=== PATIENT | male | born 1940 | race Caucasian/White ===

== ENCOUNTER 2022-02-26 08:21 | Day surgery (SDC) | payer MEDICARE, BC ==
[~2022-02-26] VITALS: Ht 175.3 cm; Wt 68.5 kg
[~2022-02-26 08:21] MED LIST: ONDA8TAB13 PO; TERA5CAP4 PO
[2022-02-26 08:40] VITALS: BP 146/85
[2022-02-26] MEDS ORDERED: normal saline 500ml IV soln 500 ML IV SCH (09:00)
[2022-02-26] MEDS ORDERED: ACET-1 PO (09:12)
[2022-02-26] MEDS ORDERED: MORP-92 PO (09:12)
[2022-02-26] MEDS ORDERED: AREDS OP (09:12)
[2022-02-26] MEDS ORDERED: FLO0.4C PO (09:12)
[2022-02-26] MEDS ORDERED: DOCU-342 PO (09:12)
[2022-02-26] MEDS ORDERED: DUTA0.5C36 PO (09:12)
[2022-02-26 09:21] LABS: BASOPHILS # (AUTO) 0.1 X10'3 (0-0.2); BASOPHILS % (AUTO) 0.3 % (0-1); EOSINOPHILS # (AUTO) 0.2 X10'3 (0-0.9); EOSINOPHILS % (AUTO) 0.9 % (0-6); HEMATOCRIT 37.6 % (42.0-52.0); HEMOGLOBIN 12.5 g/dl (14.0-17.9); LYMPHOCYTES # (AUTO) 0.6 X10'3 (1.1-4.8); LYMPHOCYTES % (AUTO) 2.3 % (21-51); MEAN CORPUSCULAR HEMOGLOBIN 32.3 PG (27.0-31.0); MEAN CORPUSCULAR HGB CONC 33.2 g/dL (33.0-36.5); MEAN CORPUSCULAR VOLUME 97.3 FL (78-98); MEAN PLATELET VOLUME 8.2 FL (7.4-10.4); MONOCYTES # (AUTO) 1.8 X10'3 (0-0.9); MONOCYTES % (AUTO) 6.8 % (2-12); NEUTROPHILS # (AUTO) 23.6 X10'3 (1.8-7.7); NEUTROPHILS % (AUTO) 89.7 % (42-75); PLATELET COUNT 412 X10'3 (140-440); RED BLOOD COUNT 3.86 X10'6 (4.70-6.10); RED CELL DISTRIBUTION WIDTH 13.2 % (11.5-14.5)
[2022-02-26 09:23] LABS: WHITE BLOOD COUNT 26.3 X10'3 (4.5-11.0)
[2022-02-26 09:46] LABS: TOTAL CELLS COUNTED 100
[2022-02-26 09:47] LABS: PLATELET ESTIMATE NORMAL
--- NOTE | 2022-02-26 10:37 | NUR ---
[facility] was in to see pt. procedure cancelled due to elevated WBC. pts daughter at bedside and aware of pts condition. Per [facility] advised pt per [facility] pt received bolus NS 500ml. per Preston d/johnnie pt and pt will go to [facility] ER per request of pt and pts daughter.
--- NOTE | 2022-02-26 11:00 | NUR ---
pts daughter called EMS to meet them in the front of the hospital for transport to [facility] ER. pt taken to ambulance bay and picked up by EMR. report given to Odalys cover marker. piv intact. pts 2 daughters with pt and aware of pts condition. pt discharged from short stay. all belongings sent with pts daughter.
== END 2022-02-26 11:00 | disposition home or self-care (01) ==
LOC: SSTAY O 08:21
PROVIDERS: ATTEND Radiology Vascular & Interventional Radiology
DX: C34.92 Malignant neoplasm of unspecified part of left bronchus or lung (principal); Z53.8 Procedure and treatment not carried out for other reasons; J44.9 Chronic obstructive pulmonary disease, unspecified; F17.210 Nicotine dependence, cigarettes, uncomplicated; Z98.890 Other specified postprocedural states; Z79.899 Other long term (current) drug therapy
CPT/HCPCS: 85025; 85610; J7030; 85007

== ENCOUNTER 2022-03-19 06:18 | Day surgery (SDC) | payer MEDICARE, BC ==
[~2022-03-19] VITALS: Ht 175.3 cm; Wt 68.8 kg
[~2022-03-19 06:18] MED LIST changes: +ACET-1 PO; +AREDS OP; +DOCU-342 PO; +DUTA0.5C36 PO; +FLO0.4C PO; +MORP-92 PO; -ONDA8TAB13 PO; -TERA5CAP4 PO
[2022-03-19] MEDS ORDERED: normal saline 1000ml 1,000 ML IV PRN (06:45)
[2022-03-19] MEDS ORDERED: SENN-263 PO (06:47)
[2022-03-19] MEDS ORDERED: PANT40TA54 PO (06:47)
[2022-03-19] MEDS ORDERED: ONDA-104 PO (06:47)
[2022-03-19] MEDS ORDERED: GABA-530 PO (06:47)
[2022-03-19] MEDS ORDERED: POLY17PO10 PO (06:47)
[2022-03-19] MEDS ORDERED: PROC-8 PO (06:48)
[2022-03-19 07:00] VITALS: BP 128/48
[2022-03-19] MEDS ORDERED: LIDOcaine 1% 30ml preserv. free vial ONE (07:51)
[2022-03-19] MEDS ORDERED: midazolam 1 mg/ML 2ml injection ONE (07:51)
[2022-03-19] MEDS ORDERED: FENTANYL CITRATE/PF 50 MCG/1 ML VIAL ONE ×2 (07:51→08:18)
[2022-03-19] MEDS ORDERED: heparin sodium, porcine/PF 100unit/ml 5ML syringe ONE (07:52)
[2022-03-19 07:54] LABS: BASOPHILS % (AUTO) 0.2 % (0-1); EOSINOPHILS # (AUTO) 1.1 X10'3 (0-0.9); EOSINOPHILS % (AUTO) 7.2 % (0-6); HEMATOCRIT 29.8 % (42.0-52.0); HEMOGLOBIN 10.1 g/dl (14.0-17.9); LYMPHOCYTES # (AUTO) 0.6 X10'3 (1.1-4.8); LYMPHOCYTES % (AUTO) 4.1 % (21-51); MEAN CORPUSCULAR HEMOGLOBIN 32.9 PG (27.0-31.0); MEAN CORPUSCULAR VOLUME 96.6 FL (78-98); MEAN PLATELET VOLUME 7.6 FL (7.4-10.4); MONOCYTES # (AUTO) 0.9 X10'3 (0-0.9); MONOCYTES % (AUTO) 5.8 % (2-12); NEUTROPHILS # (AUTO) 12.2 X10'3 (1.8-7.7); NEUTROPHILS % (AUTO) 82.7 % (42-75); PLATELET COUNT 403 X10'3 (140-440); RED BLOOD COUNT 3.09 X10'6 (4.70-6.10); RED CELL DISTRIBUTION WIDTH 13.4 % (11.5-14.5); WHITE BLOOD COUNT 14.8 X10'3 (4.5-11.0)
[2022-03-19] MEDS ORDERED: normal saline 1000ml 1,000 ML IV SCH (08:05)
[2022-03-19] MEDS ORDERED: diphenhydrAMINE 50 mg/ml inj ONE (08:09)
[2022-03-19 08:40] VITALS: BP 140/66
[2022-03-19 08:55] VITALS: BP 127/83
[2022-03-19 09:10] VITALS: BP 131/67
[2022-03-19 09:25] VITALS: BP 121/66
== END 2022-03-19 09:41 | disposition home or self-care (01) ==
LOC: SSTAY O 06:18
PROVIDERS: ATTEND Radiology Diagnostic Radiology
DX: C34.92 Malignant neoplasm of unspecified part of left bronchus or lung (principal); Z79.01 Long term (current) use of anticoagulants; Z79.899 Other long term (current) drug therapy
CPT/HCPCS: 36415; 36561; 76937; 77001; 85025; 85610; 99152; C1769; C1788; C1894; J1200; J1642; J2250; J3010; J3490; J7030; 99153; A4615; A4620